=== PATIENT | female | born 1970 | race Caucasian/White ===

== ENCOUNTER → 2017-05-23 | Day surgery (SDC) | payer OTHER ==
[~2017-05-23] VITALS: Ht 167.6 cm; Wt 80.8 kg
[~2017-05-23] MED LIST: Bupivacaine Liposome 1.3% 20 mL Inj INFILTRATE ONE; Bupivacaine Liposome 1.3% 20 mL Inj ONE; CARB200T4 PO; Dexamethasone 4 mg/mL Inj IVPUSH PRN; Dexamethasone 4 mg/mL Inj ONE; EPHEDrine Sulfate 50 mg/mL Inj IVPUSH PRN; HYDROmorphone 1 mg/mL Inj IVPUSH PRN; IBUP-1827 PO; Ketamine 10 mg/mL 20 mL Inj ONE; LISI10TA PO; Lactated Ringer's 1,000 ML IV ONE; Lactated Ringer's 1,000 ML IV SCH; Lactated Ringer's 500 ML IV PRN; MetoCLOpramide 5 mg/mL 2 mL Inj IVPUSH PRN; NORT25CA PO; OXYC1TAB24 PO; Ondansetron 2 mg/mL 2 mL Inj IVPUSH PRN; Ondansetron 2 mg/mL 2 mL Inj ONE; POLY17PO6 PO; PROP120C2 PO; Phenylephrine 10,000 mCg/mL Inj IVPUSH PRN; Propofol 10,000 mCg/mL 20 mL Inj ONE; Remifentanil 1 mg/3 mL Inj ONE; SENN-133 PO; TOPI-31 PO; TOPI50TA88 PO; oxyCODONE-Acetamin 5-325 mg Tablet PO PRN
[2017-05-23 08:38] VITALS: BP 96/64; PULSE 70; RESP 18; O2SAT 100
--- NOTE | 2017-05-23 09:21 | PCM.HPANE ---
Patient Data Surgeon Admitting Provider: Attending Provider:Segundo Reid MD Primary Care Physician:Kaleb Lion MD Other Provider:Holly Gabrielingham Anesthesia Reason for Visit Chronic Anal Fissure Ht/WT & BMI Height (Feet): 5 Height (Inches): 6.00 Weight (Kilograms): 80.830 Body Mass Index 28.00 Allergies Coded Allergies: doxycycline (Verified Allergy, Unknown, hives, 05/16/17) Past Anesthesia History Anesthesia History: Denies:: Abnormal Airway, Anesthesia Reactions (nausea), Fam Anesthesia Reaction, Fam Malignant Hypertherm, Malignant Hyperthermia Diabetes History Hx Diabetes?: No MRSA MRSA: No Medications Hypertension Medication: No Home Meds Incl Beta Norah: Yes Date Beta Norah Taken: May 23, 2017 Time Beta Norah Taken: 0600 Reported Medications Topiramate 100 Mg [id number] Mg PO QPM Ref 0 05/16/17 Topiramate 50 Mg [id number] Mg PO QAM Ref 0 05/16/17 Sennosides (Senna)8.6 Mg Tablet8.6 Mg PO PRN For Constipation 05/16/17 Propranolol ER 120 Mg Cap.sa.[id number] Mg PO DAILY 05/16/17 Polyethylene Glycol 3350 (Miralax)17 Gm Powd.pack17 Gm PO DAILY 05/16/17 oxyCODONE-Acetaminophen 5-325 mg 1 Each Tablet1 Tab PO Q4H PRN For Pain Ref 0 05/16/17 Nortriptyline 25 Mg [id number] Mg PO HS 05/16/17 Lisinopril 10 Mg Vivkir50 Mg PO DAILY 30 Days Ref 0 05/16/17 Ibuprofen 600 Mg Tsokyq364 Mg PO Q6H PRN For Pain Ref 0 05/16/17 Carbamazepine (Epitol)200 Mg [id number] Mg PO BID 05/16/17 History History of ENT Problems?: Yes HEENT History: Positive for:: Dysphagia (small issue with solids and pills- bone spurs in throat, neuralgias) TMJ (prior hx of, trigeminal neuralgia current dx) Denies:: Abnormal Airway Cataracts Difficult Intubation Glaucoma Hearing Problem Denture Type: None Teeth Condition: Within Normal Limits Other HEENT Pertinent History: loose crown- lower back Hx of Heart Problems?: Yes Cardiovascular History: Denies:: AICD Abdominal Aortic Aneurism Heart Murmur Hypertension Irregular Heartbeat Pacemaker Peripheral Vascular Rheumatic Fever Thrombophlebitis Valvular Heart Disease Hx of Respiratory Problem?: Yes Respiratory History: Denies:: Asthma COPD Emphysema Oxygen Administration Pneumonia Tuberculosis Use of C-PAP Machine Use of Inhalers / NEBS Hx Neurologic Problems?: Yes Neurological History: Positive for:: Headaches (last botox injection february 2017 , due May 30, daily headaches) Denies:: Alzheimer's Disease Multiple Sclerosis Parkinson's Disease Seizures (takes medications re trigeminal neuralgia, occipatal ) TIA Hx of GI Problems?: No Hx of Problems?: No Genitourinary History: Denies:: Kidney Stones Urinary Tract Infection HX of Peritoneal Dialysis: No Female Hx: Denies:: Currently (tubal ) Problems with Breasts? Skin History: Denies:: History Skin Disorders? Pressure Ulcers Hx Musculoskeletal Problems?: No Musculoskeletal History: Denies:: Back Injury Degenerative Joint Fibromyalgia Joint Replacement Musculoskeletal Trauma Myasthenia Gravis Osteoarthritis Rheumatoid Arthritis Systemic Lupus Hx of Psycho/Social Problems?: Yes Psycho Social History: Positive for:: Anxiety Hx Depression Hx Surgeries?: Yes (ovarian cyst, tubal, sinus surgery) Hx Any Other Health Problems?: Yes Other History: Denies:: Cancer Thyroid Disease History Blood Transfusions: Positive for:: Accept Blood Products? Denies:: Blood Transfusions Hx Diabetes: No Hx Alcohol Use: NoHx Substance Use: Yes (marijuana inhale- once weekly)Have You Smoked inLast 12 mo: Yes (one ppd) Stop/Bang Treated for Sleep Apnea?: No Do You Have a CPAP Machine?: No S-Snoring: Do You Snore Loudly: No T-Tired: feel tired, fatigued: No O-Obsered: Observed not breath: No P-Blood Pressure: treated: Yes B- Body Mass Index > 35 kg/m2: No A- Age over 50: No N- Neck Large Circumference: No G- Gender Male: No ENRRIQUE Total Score: 1 ENRRIQUE Risk Assessment: Low Risk, <3 Yes Risk Assessment Category Category 1A: Patient has history of documented sleep apnea, and HAS NOT received any narcotic, sedative or anesthesia administration during this stay. Category 1B: Patient has history of documented sleep apnea, and HAS received any narcotic , sedative or anesthesia administration during this stay Category 2: Patient has SUSPECTED Obstructive Sleep Apnea, and HAS received any narcotic , sedative or anesthesia administration during this stay. Category 3: Patient has SUSPECTED Obstructive Sleep Apnea and HAS NOT received narcotic, sedative or anesthesia administration during this stay. Category 4: Outpatient in Procedural Areas with known sleep apnea or who screen positive for High Risk via the STOP/BANG questionnaire. Exam Exam Vital Signs Vital Signs Date Time Temp Pulse Resp B/P Pulse Ox O2 Delivery O2 Flow Rate FiO2 05/23/17 08:38 70 18 96/64 100 Room Air General Appearance: Alert, Oriented X3, Cooperative, No Acute Distress HEENT/AIRWAY: MP 2 Lungs: Clear to Auscultation, Normal Air Movement Heart: Exam Unremarkable, Regular Rate/Rhythm, No Murmurs/Rubs/Gallops Meds/Labs/Diagnostics Admission Meds Current Medications Lactated Ringer's (Lr) 1,000 ml @ ud STK-MED ONCE IV Last administered on 05/23t 08:49; Start 05/23/17 at 08:49; Stop 05/23/17 at 08:50; Status DC Plan Impression Patient chart reviewed, patient interviewed and anesthestic plan with risks, benefits, and alternatives discussed, and informed consent obtained. ASA Physical Status: ASA2 Mod Systemic Disease Anesthetic Plan: GA Bene/Risks/Altern/Consents: Yes HP Complete Prior to Induction: Yes Duong Tavarez MD May 23, 2017 09:21
[2017-05-23 10:37] VITALS: BP 111/76; PULSE 68; RESP 12; O2SAT 98
--- NOTE | 2017-05-23 10:37 | PCM.DISURG ---
Surgical Discharge Instruction Date of Service May 23, 2017 Dates of Hospitalization Date of Hospital Admission Providers Admitting Physician: Primary Care Physician: Kaleb Lion MD Attending Physician: Segundo Reid MD Discharge Diagnosis Discharge Diagnosis anal fissure Diet Discharge Diet: No restrictions Activity Discharge Activity-General: No restrictions Dressing and Incisional Care Dressing Care: Change soiled dressing Dressing Instructions: Remove packing after 24 hours Hygiene: May shower after (24 hours) Follow Up Plan Follow Up Plan in the [facility] clinic in 2-3 weeks Call your provider for: Discharge @ incision, pus discharge Segundo Reid MD May 23, 2017 10:37
[2017-05-23 10:45] VITALS: BP 128/78; PULSE 68; RESP 12; O2SAT 98
[2017-05-23] MEDS: fentaNYL-PF 50 mCg/mL 2 mL Inj IVPUSH PRN ×2 (10:45→10:55)
[2017-05-23 11:00] VITALS: BP_SYST 112; BP_SYST 113; BP_DIAS 62; BP_DIAS 63; PULSE 63; PULSE 65; RESP 10; RESP 12; O2SAT 100; O2SAT 98
[2017-05-23 11:49] VITALS: BP 110/57; PULSE 68; RESP 16; O2SAT 98
--- NOTE | 2017-05-23 12:01 | PCM.SURGOP ---
Surgical Operative Report Date of Service: May 23, 2017 Pre Operative Diagnosis Chronic anal fissure Post Operative Diagnosis Same Procedure: Anal exam under anesthesia, lateral internal sphincterotomy Surgeon and Director Of Healthcare Systems: Surgeon: Segundo Reid MD Assistants: None Indication for Procedure 46-year-old woman who presented with several months of excruciating anal pain, spasms, and a small amount of blood on the toilet paper. She could not tolerate digital rectal exam in the office. She has trigeminal neuralgia with migraine headaches, so she did not tolerate nitroglycerin anal ointment. After discussion of risks and benefits, she agreed to proceed with anal exam under anesthesia and lateral internal sphincterotomy. Findings: The anal sphincter was hypertensive. There were small hemorrhoids. There is a posterior midline fissure, as well as a small depressed area in the right anterior region, which may have been a fissure or a small superficial anal gland with inflammation. There was no fistula identified. Procedure Details After smooth induction of general anesthesia, she was placed in the high lithotomy position, and was prepped and draped in a wide sterile fashion. A procedural timeout was performed according to the SCOAP checklist, and all were found to be in agreement. Digital rectal exam was performed, revealing a hypertensive anal sphincter. There was a tiny amount of purulent fluid emanating from the right anterior anal canal. A bivalve anal retractor was placed in that area was inspected. There was either a superficial fissure in that area, or a small inflamed anal gland. A fistula probe was used to evaluate the area, and no fistula could be identified. Similarly, an 18-gauge angiocatheter was used to inject saline into the area, and it did not go anywhere. There was a posterior midline anal fissure. There were some small hemorrhoids. Using an 11 blade scalpel, a lateral internal sphincterotomy was performed over a finger in the anal canal until there was an obvious release. The anal canal was manually dilated until 3 fingers could be easily inserted. There was some bleeding from the sphincterotomy site. Pressure was held. Bleeding improved, but there was still more bleeding than usual, so I elected to pack the area with quarter-inch Nu Gauze. A perianal block was performed using liposomal bupivacaine. Sterile dressings were applied. At the end of the case all needle and sponge counts were correct 2. The patient was awakened from anesthesia without difficulty, and taken to the recovery room in satisfactory condition, having tolerated the procedure well. Complications There were no periprocedural complications identified. Surgical Specimen Removed: No Specimen sent to Pathology: Not applicable Anesthetic Plan: GA Grafts, Implants: None Output, Estimated Blood Loss: 50 Blood Administration during schilling: No Drains: None Catheters: None Segundo Reid MD May 23, 2017 12:01
[2017-05-23 12:24] VITALS: BP 112/64; PULSE 66; RESP 18; O2SAT 100
--- NOTE | 2017-05-23 16:01 | PCM.ANEP1 ---
Post Anesthesia PACU Phase 1 Assessment Vital Signs Vital Signs Date Time Temp Pulse Resp B/P Pulse Ox O2 Delivery O2 Flow Rate FiO2 05/23/17 12:24 66 18 112/64 100 Room Air 05/23/17 11:49 68 16 110/57 98 Room Air 05/23/17 11:00 63 12 113/62 98 Nasal Cannula 2 05/23/17 11:00 65 10 112/63 100 Nasal Cannula 2 05/23/17 10:45 68 12 128/78 98 Room Air 05/23/17 10:37 36.8 68 12 111/76 98 Room Air 05/23/17 08:38 70 18 96/64 100 Room Air Anesthetic Administered: GA Level of Alertness: Awake, talking REZA's with Equal Strength: Yes Pain: No Nausea or Vomiting: No CV Function & Hydration Stable: Yes Airway Device: none Oxygen Delivery: Nasal Cannula Lungs: Clear to Auscultation, Normal Air Movement Dermatome Level: Full Sensation PACU Phase 2 Assessment Complications: No Follow up Care: No Patient Instructions Provided: N/A Duong Tavarez MD May 23, 2017 16:01
== END | disposition home or self-care (01) ==
LOC: SAS 08:18
PROVIDERS: ATTEND Student in an Organized Health Care Education/Training Program
DX: K60.1 Chronic anal fissure (principal); I10 Essential (primary) hypertension; R13.10 Dysphagia, unspecified; R51 Headache; M26.609 Unspecified temporomandibular joint disorder, unspecified side; F41.9 Anxiety disorder, unspecified; F17.210 Nicotine dependence, cigarettes, uncomplicated; Z79.899 Other long term (current) drug therapy
CPT/HCPCS: 46080; J1100; J1170; J2175; J2250; J2405; J2704; J3010; J7120